=== PATIENT | female | born 1945 | race Caucasian/White ===

== ENCOUNTER → 2016-10-25 | Outpatient (CLI) | payer MEDICARE, OTHER ==
--- NOTE | ~2016-10-25 | BD1 ---
[facility] Service of [facility] RADIOLOGY TEXT RESULTS PATIENT: JODY PAGAN LOCATION: [facility] : 49 UNIT #: [id number] AGE: [address]: Shaw Richards MD SEX: F ORDER DR: [id number] [place] [id number] O MR#: [id number] Acc #: [id number] NAME: JODY PAGAN : 1945 SEX: F STUDY DATE/TIME: 10/25/2016 14:21 UNIT: [facility] ROOM: STUDY DESCRIPTION: Dexa Bone Dens 1+ Site Attending Physician: Shaw Richards M.D. Referring Physician: Shaw Richards M.D. Ordering Physician: Shaw Richards M.D. Primary Care Physician: Shaw Richards M.D. MEDICAL IMAGING REPORT This report is preliminary unless electronic signature is present. EXAM DXA scan HISTORY Postmenopausal screening for osteoporosis. FINDINGS Bone density was assessed utilizing a lunar bone densitometer. Total bone dense of the lumbar spine was calculated 1.172 g/cm2 with a T-score of -0.1. Total bone density within the proximal left femur was calculated at 0.966 g/cm2 with a T-score of -0.3. Total bone density in the proximal right femur was calculated at 0.977 g/cm2 with a T-score -0.2. IMPRESSION Total bone density within the lumbar spine and proximal femurs is within 1 standard deviation of the mean and therefore, normal. Dictated by... John Laguna M.D. THIS IS AN ELECTRONICALLY VERIFIED REPORT John Laguna M.D. at 10/26/2016 8:00 AM CLAUDINE/sofía TD: 10/25/2016 17:13 JOB #: [id number] MEDICAL IMAGING REPORT Page 1 of 1
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
--- NOTE | ~2016-10-25 | MY11 ---
[facility] A Service of [facility] RADIOLOGY TEXT RESULTS PATIENT: JODY PAGAN LOCATION: [facility] : 49 UNIT #: [id number] AGE: [address]: Shaw Richards MD SEX: F ORDER DR: [id number] [place] [id number] O MR#: [id number] Acc #: [id number] NAME: JODY PAGAN : 1945 SEX: F STUDY DATE/TIME: 10/25/2016 14:44 UNIT: [facility] ROOM: STUDY DESCRIPTION: MY Mammogram Screening Dig Ayan Attending Physician: Shaw Richards M.D. Referring Physician: Shaw Richards M.D. Ordering Physician: Shaw Richards M.D. Primary Care Physician: Shaw Richards M.D. MEDICAL IMAGING REPORT This report is preliminary unless electronic signature is present. EXAM Digital screening mammogram 10/25/2016 HISTORY 71-year-old woman; positive family history, maternal aunt. Previous augmentation age 29, with explantation age 49. Subsequent nipple inversions bilaterally following explantation. Annual screening. COMPARISON 07/09/2010, 03/14/2012, 10/18/2013, 10/17/2015. FINDINGS Digital imaging of each breast was completed, utilizing screening protocol. Bilateral exaggerated craniocaudal views are included. Skin marker is placed, left periareolar location. Review includes FDA-approved CAD device. Breast structures are small and predominantly fatty replaced. Bilateral nipple inversion noted, most pronounced on the left, which includes some additional postsurgical deformity. I see no interval occurring breast mass. There are no suspicious microcalcifications. IMPRESSION Stable benign mammogram. Annual screening recommended. Patients over the age of 40 are entered into a reminder system with target due date for the next mammogram. A result letter will also be sent to the patient. BIRADS: 2 Benign finding. Dictated by... [facility] A Service of [facility] RADIOLOGY TEXT RESULTS PATIENT: [facility]AGAN [id number] [birth year] UNIT #: [id number] AGE: [address]: Shaw Richards MD SEX: F ORDER DR: Romie Park M.D. THIS IS AN ELECTRONICALLY VERIFIED REPORT Romie Park M.D. at 10/26/2016 8:08 AM JOSE/moses TD: 10/25/2016 15:58 JOB #: [id number] MEDICAL IMAGING REPORT Page 1 of 1
== END | disposition home or self-care (01) ==
LOC: SMAM 14:19
DX: Z12.31 Encounter for screening mammogram for malignant neoplasm of breast (principal); Z13.820 Encounter for screening for osteoporosis; M54.5 Low back pain; M47.816 Spondylosis without myelopathy or radiculopathy, lumbar region; M43.16 Spondylolisthesis, lumbar region; M51.36 Other intervertebral disc degeneration, lumbar region; Z78.0 Asymptomatic menopausal state; Z80.3 Family history of malignant neoplasm of breast
CPT/HCPCS: 72100; 77080; G0202